=== PATIENT | female | born 1940 | race Caucasian/White ===

== ENCOUNTER 2022-10-03 01:03 | Inpatient (IN) | payer OTHER ==
[~2022-10-03] VITALS: Ht 162.6 cm; Wt 74.4 kg
[2022-10-03] MEDS ORDERED: METOPROLOL SUCC50 MG (16:29)
[2022-10-03] MEDS ORDERED: OXYBUTYNIN CHLOR5 MG (16:29)
[2022-10-03] MEDS ORDERED: [UNRECOGNIZED DRUG - SUPPLY] (16:29)
[2022-10-03] MEDS ORDERED: CLOPIDOGREL BIS75 MG (16:29)
[2022-10-03] MEDS ORDERED: ROSUVASTATIN CA20 MG (16:30)
[2022-10-03] MEDS ORDERED: LOSARTAN POTAS100 MG (16:30)
[2022-10-06] MEDS ORDERED: IPRATROPIU0.2 MG/1 M IH (15:01)
[2022-10-06] MEDS ORDERED: LOSARTAN POTAS100 MG PO (15:01)
[2022-10-06] MEDS ORDERED: XOPENEX0.63 MG/3 IH (15:01)
[2022-10-06] MEDS ORDERED: LIPITOR40 MG PO (15:01)
[2022-10-06] MEDS ORDERED: BRILINTA90 MG PO (15:01)
[2022-10-06] MEDS ORDERED: TOPROL XL25 M1 PO (15:01)
== END 2022-10-06 17:21 | disposition home or self-care (01) | DRG 191 ==
LOC: ER 01:03 → MEDI 14:34
PROVIDERS: ADMIT Internal Medicine; ATTEND Internal Medicine
PROC: B24BZZZ Ultrasonography of Heart with Aorta (ICD-10-PCS; principal; 2022-10-03)
PROC: 4A12X4Z Monitoring of Cardiac Electrical Activity, External Approach (ICD-10-PCS; 2022-10-03)
DX: J44.1 Chronic obstructive pulmonary disease with (acute) exacerbation (principal); J45.901 Unspecified asthma with (acute) exacerbation; R06.02 Shortness of breath; E86.0 Dehydration; Z20.822 Contact with and (suspected) exposure to COVID-19; E78.5 Hyperlipidemia, unspecified; Z87.891 Personal history of nicotine dependence; I71.40 Abdominal aortic aneurysm, without rupture, unspecified; I10 Essential (primary) hypertension